=== PATIENT | female | born 1995 | race American Indian/Alaskan Native ===

== ENCOUNTER 2019-12-06 23:39 | Emergency (ER) | payer SELFPAY ==
[2019-12-06 23:52] VITALS: BP 129/83
[2019-12-07] MEDS ORDERED: IBUPROFEN 800 MG TAB ONE (00:38)
[2019-12-07] MEDS ORDERED: IBUPROFEN 800 MG TAB PO ONE (00:41)
--- NOTE | 2019-12-07 00:44 | XRay Report ---
CHEST 2 VIEWS INDICATION / CLINICAL INFORMATION: cough. COMPARISON: None available. FINDINGS: SUPPORT DEVICES: None. HEART / MEDIASTINUM: No significant abnormality. LUNGS / PLEURA: No significant pulmonary or pleural abnormality. No pneumothorax. ADDITIONAL FINDINGS: No significant additional findings. IMPRESSION: No significant abnormality Signer Name: Nathan Rodríguez MD FACR Signed: 12/07/2019 12:39 AM Workstation Name: [employer]
--- NOTE | 2019-12-07 01:15 | Emergency Department Report ---
ED General Adult HPI - General Chief complaint: Psych Stated complaint: FEVER/BREATHING PAIN Time Seen by Provider: 12/07/19 00:11 Source: patient Mode of arrival: Ambulatory Limitations: No Limitations - History of Present Illness Initial comments: Patient is a 24-year-old F Japanese female with past medical history of bipolar depression as well as and unknown mood disorder who is presenting with a cough. Patient called paramedics because he states he has been coughing for the last 10 years. Patient's psychotic diagnoses believes make it hard for her to give accurate timelines. Patient is 7 difficult time focusing and sometimes starts talking about things and noted 2017. Patient was asked prior to arrival if she was suicidal and she said yes. On further questioning she states that she has been suicidal in the past with cutting but she is not suicidal or homicidal at this time. Patient wants to come in because of the shortness of breath and cough. Again the patient states is been going on for 10 years however is unknown whether this is true. Severity scale (0 -10): 10 - Related Data Previous Rx's Medication Instructions Recorded Last Taken Type Albuterol INH(or & Nicu Only) 2 puff IH QID PRN #1 inhalation 12/07/19 Unknown Rx [ProAir HFA Inhaler] Benzonatate [Tessalon Perles] 100 mg PO Q8HR #10 capsule 12/07/19 Unknown Rx Fluticasone [Flonase] 1 spray NS QDAY #1 bottle 12/07/19 Unknown Rx predniSONE [Deltasone] 20 mg PO QDAY #5 tab 12/07/19 Unknown Rx Allergies Allergy/AdvReac Type Severity Reaction Status Date / Time No Known Allergies Allergy Unverified 12/06/19 23:57 ED Review of Systems ROS: Stated complaint: FEVER/BREATHING PAIN Other details as noted in HPI Comment: All other systems reviewed and negative ED Past Medical Hx - Past Medical History Previous Medical History?: Yes Hx Psychiatric Treatment: Yes (anxiety,) Additional medical history: hyperthyroid, ovarian cyst - Surgical History Past Surgical History?: No - Social History Smoking Status: Current Every Day Smoker Substance Use Type: Alcohol, Marijuana - Medications Home Medications: Home Medications Medication Instructions Recorded Confirmed Last Taken Type Albuterol INH(or & Nicu Only) 2 puff IH QID PRN #1 inhalation 12/07/19 Unknown Rx [ProAir HFA Inhaler] Benzonatate [Tessalon Perles] 100 mg PO Q8HR #10 capsule 12/07/19 Unknown Rx Fluticasone [Flonase] 1 spray NS QDAY #1 bottle 12/07/19 Unknown Rx predniSONE [Deltasone] 20 mg PO QDAY #5 tab 12/07/19 Unknown Rx ED Physical Exam - General Limitations: No Limitations General appearance: alert, in no apparent distress - Head Head exam: Present: atraumatic, normocephalic - Eye Eye exam: Present: normal appearance. Absent: PERRL, EOMI - ENT ENT exam: Present: normal orophraynx, mucous membranes moist - Neck Neck exam: Present: normal inspection - Respiratory Respiratory exam: Present: normal lung sounds bilaterally. Absent: respiratory distress, wheezes, rales, rhonchi (Patient has a bronchitic cough) - Cardiovascular Cardiovascular Exam: Present: regular rate, normal rhythm, normal heart sounds. Absent: systolic murmur, diastolic murmur, rubs, gallop - GI/Abdominal GI/Abdominal exam: Present: soft, normal bowel sounds. Absent: distended, tenderness, guarding, rebound - Extremities Exam Extremities exam: Present: normal inspection - Back Exam Back exam: Present: normal inspection - Neurological Exam Neurological exam: Present: alert, oriented X3 - Psychiatric Psychiatric exam: Present: normal affect, normal mood - Skin Skin exam: Present: warm, dry, intact, normal color. Absent: rash ED Course Vital Signs 12/06/19 12/07/19 23:49 00:45 Temperature 98.3 F Pulse Rate 115 H Respiratory 20 18 Rate Blood Pressure 129/83 O2 Sat by Pulse 99 Oximetry ED Medical Decision Making - Radiology Data Ordering Physician: JUANJOSE RIVERA MD Date of Service: 12/07/19 Procedure(s): XR chest routine 2V Accession Number(s): [id number] cc: JUANJOSE RIVERA MD Fluoro Time In Minutes: CHEST 2 VIEWS INDICATION / CLINICAL INFORMATION: cough. COMPARISON: None available. FINDINGS: SUPPORT DEVICES: None. HEART / MEDIASTINUM: No significant abnormality. LUNGS / PLEURA: No significant pulmonary or pleural abnormality. No pneumothorax. ADDITIONAL FINDINGS: No significant additional findings. IMPRESSION: No significant abnormality Signer Name: Nathan Rodríguez MD FACR Signed: 12/07/2019 12:39 AM Workstation Name: [email or web address] - Medical Decision Making Patient with a bronchitic cough but normal chest x-ray. Patient is a heavy smoker and likely has a smoker's bronchitis. Patient be discharged home. Given the recent outbreak of COVID 19 patient is to self isolate herself. Patient given medications for symptomatic relief. Patient stable for discharge. Patient was wearing a mask and I was wearing a mask the entire interaction. Close contact interaction was less than 10 minutes. Critical care attestation.: If time is entered above; I have spent that time in minutes in the direct care of this critically ill patient, excluding procedure time. ED Disposition Clinical Impression: Acute bronchitis Qualifiers: Bronchitis organism: unspecified organism Qualified Code(s): J20.9 - Acute bronchitis, unspecified Disposition: DC-01 TO HOME OR SELFCARE Is pt being admited?: No Does the pt Need Aspirin: No Condition: Stable Instructions: Acute Bronchitis (ED) Referrals: MARSHALL HENAO MD [Referring] - 3-5 Days Time of Disposition: 01:21
== END 2019-12-07 01:52 | disposition home or self-care (01) ==
LOC: ED 23:39
DX: J20.9 Acute bronchitis, unspecified (principal); R50.9 Fever, unspecified; E03.9 Hypothyroidism, unspecified; F41.9 Anxiety disorder, unspecified; F12.90 Cannabis use, unspecified, uncomplicated; F17.200 Nicotine dependence, unspecified, uncomplicated; Z79.899 Other long term (current) drug therapy; Z91.010 Allergy to peanuts; Z88.6 Allergy status to analgesic agent
CPT/HCPCS: 71046; 99283

== ENCOUNTER 2019-12-07 20:35 | Emergency (ER) | payer SELFPAY ==
--- NOTE | 2019-12-07 23:19 | Event Note ---
ED Screening Note Date of service: 12/07/19 Time: 23:14 ED Screening Note: 24 y/o female with vaginal pain intermittently times 3 year. Was seen here yesterday. History of bipolar. Patient has been eating and drinking. Has not taking any pain medication and is not on Psych meds. Patient is very aggressive talking loud. Walking well with out difficulties. This initial assessment/diagnostic orders/clinical plan/treatment(s) is/are subject to change based on patients health status, clinical progression and re- assessment by fellow clinical providers in the ED. Further treatment and workup at subsequent clinical providers discretion. Patient/guardian urged not to elope from the ED as their condition may be serious if not clinically assessed and managed. Initial orders include:
[2019-12-08] MEDS: LORazepam 1 MG TAB PO ONE ×2 (01:52→04:45)
[2019-12-08 01:57] LABS: Basophils % (Auto) 0.3 % (0.0-1.8); Eosinophils % (Auto) 0.1 % (0.0-4.3); Hematocrit 33.8 % (30.3-42.9); Hemoglobin 11.2 gm/dl (10.1-14.3); Lymphocytes # (Auto) 2.2 K/mm3 (1.2-5.4); Lymphocytes % (Auto) 15.7 % (13.4-35.0); Mean Corpuscular HGB Conc 33 % (30-34); Mean Corpuscular Volume 86 fl (79-97); Monocytes # (Auto) 0.8 K/mm3 (0.0-0.8); Monocytes % (Auto) 5.9 % (0.0-7.3); Platelet Count 348 K/mm3 (140-440); Red Blood Count 3.94 M/mm3 (3.65-5.03); Red Cell Distribution Width 15.6 % (13.2-15.2)
[2019-12-08 02:13] LABS: Alanine Aminotransferase 16 units/L (7-56); Albumin 3.9 g/dL (3.9-5); BUN/Creatinine Ratio 8; Blood Urea Nitrogen 5 mg/dL (7-17); Calcium 9.3 mg/dL (8.4-10.2); Hemolysis Index 8
[2019-12-08] MEDS ORDERED: traMADol 50 MG TAB PO ONE ×3 (02:23→20:56)
--- NOTE | 2019-12-08 02:31 | Emergency Department Report ---
<NINO CORREA - Last Filed: 12/11/19 11:36> ED Psych HPI - General Chief Complaint: Abdominal Pain Stated Complaint: LUMP RT BREAST/OVARIAN CYST/ ABD PAIN Time Seen by Provider: 12/07/19 23:05 - Related Data Previous Rx's Medication Instructions Recorded Last Taken Type Albuterol INH(or & Nicu Only) 2 puff IH QID PRN #1 inhalation 12/07/19 Unknown Rx [ProAir HFA Inhaler] Benzonatate [Tessalon Perles] 100 mg PO Q8HR #10 capsule 12/07/19 Unknown Rx Fluticasone [Flonase] 1 spray NS QDAY #1 bottle 12/07/19 Unknown Rx predniSONE [Deltasone] 20 mg PO QDAY #5 tab 12/07/19 Unknown Rx Divalproex [Earnestine Sharma] 500 mg PO BID #60 tablet 12/11/19 Unknown Rx OLANzapine [ZyPREXA] 5 mg PO BID #60 tablet 12/11/19 Unknown Rx Allergies Allergy/AdvReac Type Severity Reaction Status Date / Time acetaminophen Allergy Angioedema Verified 12/08/19 02:22 ibuprofen [From Motrin] Allergy Angioedema Verified 12/08/19 02:22 peanut Allergy Angioedema Verified 12/11/19 04:51 ED Past Medical Hx - Medications Home Medications: Home Medications Medication Instructions Recorded Confirmed Last Taken Type Albuterol INH(or & Nicu Only) 2 puff IH QID PRN #1 inhalation 12/07/19 12/08/19 Unknown Rx [ProAir HFA Inhaler] Benzonatate [Tessalon Perles] 100 mg PO Q8HR #10 capsule 12/07/19 12/08/19 Unknown Rx Fluticasone [Flonase] 1 spray NS QDAY #1 bottle 12/07/19 12/08/19 Unknown Rx predniSONE [Deltasone] 20 mg PO QDAY #5 tab 12/07/19 12/08/19 Unknown Rx Divalproex [Earnestine Sharma] 500 mg PO BID #60 tablet 12/11/19 Unknown Rx OLANzapine [ZyPREXA] 5 mg PO BID #60 tablet 12/11/19 Unknown Rx ED Medical Decision Making - Lab Data Result diagrams: 12/08/19 01:46 12/08/19 01:46 - Medical Decision Making Ms. Hayes is a 24 yo female with hx of bipolar disorder who presents with concerns of a right breast lump and ovarian cyst pain for 3 years. She has many concerns. She denies suicidal homicidal ideation. She denies hearing voices. She speaks of many subjects. She states that she has been on a 5150 in [place]. She has been admitted 4 times to psychiatric facilty. Security discovered a knife in her possession. She does not take psychiatric medications because she states these agents make her suicidal. I personally examined Ms. Hayes. Patient is calm and pleasant. Patient denied any suicidal or homicidal ideation. Patient has been evaluated by our psychiatric team and advised to discharge patient home and to follow-up as an outpatient. Patient is medically and psychiatrically stable for discharge. ED Disposition Clinical Impression: Acute psychosis, Pelvic pain Disposition: - TO HOME OR SELFCARE Is pt being admited?: No Condition: Stable Instructions: Abdominal Pain (ED) Prescriptions: Divalproex Dr [Depakote Dr] 500 mg PO BID #60 tablet OLANzapine [ZyPREXA] 5 mg PO BID #60 tablet Referrals: PRIMARY CARE, [Primary Care Provider] - 3-5 Days <PINO RIVERA - Last Filed: 12/13/19 11:34> ED Psych HPI - General Source: patient Mode of arrival: Ambulatory Limitations: Other - History of Present Illness Initial Comments: Ms. Hayes is a 24 yo female with hx of bipolar disorder who presents with concerns of a right breast lump and ovarian cyst pain for 3 years. She has many concerns. She denies suicidal homicidal ideation. She denies hearing voices. She speaks of many subjects. She states that she has been on a 5150 in [place]. She has been admitted 4 times to psychiatric facilty. Security discovered a knife in her possession. She does not take psychiatric medications because she states these agents make her suicidal. Complaint: other (Disorganized poor insight) -: unknown Associated Psychiatric Symptoms: racing thoughts Quality: constant Improves With: none Worsens With: none Context: not taking psychiatric, other (Recent move from [place]) Associated Symptoms: other (Right breast lump ovarian cyst) Treatments Prior to Arrival: none ED Review of Systems ROS: Stated complaint: LUMP RT BREAST/OVARIAN CYST/ ABD PAIN Other details as noted in HPI Comment: All other systems reviewed and negative Constitutional: denies: fever Respiratory: cough. denies: shortness of breath Genitourinary: other (Pelvic pain) ED Past Medical Hx - Past Medical History Previous Medical History?: Yes Hx Psychiatric Treatment: Yes (anxiety, Schizophrenia) Additional medical history: hyperthyroid, right ovarian cyst, right breast lump - Surgical History Past Surgical History?: No - Social History Smoking Status: Former Smoker Substance Use Type: None ED Physical Exam - General Limitations: No Limitations General appearance: alert, in no apparent distress - Head Head exam: Present: atraumatic, normocephalic - Eye Eye exam: Present: normal appearance - ENT ENT exam: Present: mucous membranes moist - Neck Neck exam: Present: normal inspection, full ROM - Respiratory Respiratory exam: Present: normal lung sounds bilaterally. Absent: respiratory distress, wheezes, rales, rhonchi - Cardiovascular Cardiovascular Exam: Present: regular rate, normal rhythm, normal heart sounds. Absent: systolic murmur, diastolic murmur, rubs, gallop - GI/Abdominal GI/Abdominal exam: Present: soft, normal bowel sounds. Absent: distended, tenderness, guarding, rebound - Extremities Exam Extremities exam: Present: normal inspection - Neurological Exam Neurological exam: Present: alert, oriented X3 - Psychiatric Psychiatric exam: Present: normal affect, agitated, other (Circular pressured speech poor insight disorganized thought pattern) - Skin Skin exam: Present: warm, dry, intact, normal color. Absent: rash ED Course Vital Signs 12/08/19 12/08/19 12/08/19 02:03 02:26 02:28 Temperature 98.2 F Pulse Rate 105 H Respiratory 18 18 20 Rate Blood Pressure 139/103 [Right] O2 Sat by Pulse 97 99 Oximetry 12/08/19 12/08/19 12/08/19 03:28 04:12 04:30 Temperature 98.2 F Pulse Rate 112 H 105 H Respiratory 18 18 Rate Blood Pressure 121/84 [Right] O2 Sat by Pulse 97 Oximetry 12/08/19 12/08/19 12/08/19 07:47 13:03 20:33 Temperature 97.6 F 98.9 F Pulse Rate 88 91 H Respiratory 18 18 18 Rate Blood Pressure 109/64 113/76 [Right] O2 Sat by Pulse 100 99 Oximetry 12/08/19 12/09/19 12/09/19 21:05 02:15 08:01 Temperature 98.4 F 98.9 F Pulse Rate 77 87 Respiratory 20 16 18 Rate Blood Pressure 100/71 136/95 [Right] O2 Sat by Pulse 100 99 Oximetry 12/09/19 12/09/19 12/09/19 13:31 20:00 20:06 Temperature 98.6 F 98.3 F Pulse Rate 73 74 Respiratory 18 16 16 Rate Blood Pressure 133/80 118/71 [Right] O2 Sat by Pulse 94 96 96 Oximetry 12/10/19 12/10/19 12/11/19 01:10 19:34 08:16 Temperature 98.3 F 98.7 F 98.8 F Pulse Rate 86 109 H 99 H Respiratory 18 16 18 Rate Blood Pressure 126/83 117/84 123/89 [Right] O2 Sat by Pulse 98 100 100 Oximetry ED Medical Decision Making - Lab Data Result diagrams: 12/08/19 01:46 12/08/19 01:46 - Medical Decision Making Ms. Hayes presents with multiple concerns including a right breast lump and ovarian cysts which have been present for 3 years. It appears that she is either experiencing acute darling or psychosis. She is agitated with disorganized thought patterns circular pressured speech. She had a weapon in her possession upon arrival. I have placed her on involuntary hold 1013 protocol for her safety and the safety of others. She is medically clear for psychiatric care. with elevated white count, will treat for possible pelvic infection such as PID, no evidence of other source of infection, at this time, pelvic exam has been deferred due to patient's current mental state Patient has been encouraged to obtain outpatient mammogram by primary care physician when she is stabilized from a psychiatric standpoint. Additionally she does not have fever or cough to indicate coronavirus COVID 19 infection I examined the right breast iof patient with her permission and female nurse it security administrator. I was unable to discover a lung mass. There is no abscess. Patient likely has cystic breasts. I recommended mammogram within the next 3 to 6 months. Also recommended monthly breast exams. Critical care attestation.: If time is entered above; I have spent that time in minutes in the direct care of this critically ill patient, excluding procedure time. ED Disposition Is pt being admited?: No Does the pt Need Aspirin: No
[2019-12-08] MEDS ORDERED: LIDOCAINE-MPF (1%) 10 MG/1 ML VIAL 5 ML INFILTRATI ONE (02:32)
[2019-12-08] MEDS: DOXYCYCLINE 100 MG TAB PO SCH ×3 (03:08→22:07)
[2019-12-08] MEDS ORDERED: LORazepam 1 MG TAB ONE (04:45)
[2019-12-08 05:32] LABS: Bacteria,Urine 1+ /HPF (Negative); Bilirubin,Urine NEG (Negative); Blood,Urine NEG (Negative); Color,Urine Yellow (Yellow); Mucus,Urine FEW /HPF; Protein,Urine <15 mg/dL mg/dL (Negative); Urobilinogen,Urine < 2.0 mg/dL (<2.0)
[2019-12-08 05:36] LABS: Amphetamine Screen,Urine PRESUMPTIVE NEGATIVE; Benzodiazepines Screen,Urine PRESUMPTIVE NEGATIVE; Cocaine Screen,Urine PRESUMPTIVE NEGATIVE; Methadone Screen,Urine PRESUMPTIVE NEGATIVE; Opiate Screen,Urine PRESUMPTIVE NEGATIVE
[2019-12-08 06:02] LABS: Cannabinoid Screen,Urine PRESUMPTIVE POSITIVE
[2019-12-09] MEDS: DOXYCYCLINE 100 MG TAB PO SCH ×2 (10:08→23:29)
--- NOTE | 2019-12-09 11:23 | Consultation ---
History of Present Illness - Reason for Consult Consult date: 12/09/19 Reason for consult: Psych eval - Chief Complaint Chief complaint: "I want emergency ultra sound for my ovarian cyst" - History of Present Psychiatric Illness Ms. Hayes is a 24 yo female with hx of bipolar disorder who presents with concerns of a right breast lump and ovarian cyst pain for 3 years. She is disorganized, talkative, disruptive and paranoid hence Psychiatry consult is requested to evaluate and recommend disposition. Patient seen by me. She is states that she presented to the ED because she wants an emergency ultra sound for ovarian cyst. Patient is irritable, loud, difficult to re-direct, talkative and difficult to interrupt. She endorses raising thoughts. She has flight of ideas and her thought process is tangential. She is paranoid and has been carrying a knife. She denies suicidal homicidal ideation. She denies hearing voices. She states that she has been on a 5150 in [place]. She has been admitted 4 times to psychiatric facilty. Security discovered a knife in her possession. PAST PSYCHIATRIC HISTORY: Diagnoses: Bipolar disorder Suicide attempts or Self-harm behavior: no Prior psychiatric hospitalizations: yes Substance Abuse history: THC Previous psychiatric medications tried: Unknown Outpatient treatment: No Family Psychiatric History None reported or documented SOCIAL HISTORY Marital Status: Single Living Arrangements: with ex-boyfriend's family Employment Status: unemployed Access to guns/weapons: Patient denies Education: Some college History of Abuse: Patient denies Legal History: Patient denies ROS: Constitutional: Negative for weight loss ENT: Negative for stridor Respiratory: Negative for cough or hemoptysis All other systems reviewed and are negative MENTAL STATUS General Appearance and Behavior: age appropriate, good eye contact, uncooperative with questioning Cooperation: uncooperative Psychomotor Behavior: Agitated Mood: OK Affect and affective range: Elated Thought Process: Tangential, flight of ideas Thought Content: Paranoid Speech: Loud, speeded Intellectual Functioning Average Suicidal Ideation: Denies SI Homicidal Ideation: Denies HI Impulse Control: impaired Insight and Judgment: impaired insight and judgment Memory: Normal Attention: Normal Orientation: alert and oriented Assessment and Plan - Psychiatric problem (1) Bipolar disorder, current episode manic severe with psychotic features Current Visit: Yes Status: Acute RECOMMENDATIONS MEDICATIONS: Will start Olanzapine and Depakote Risks, benefits and alternatives of medications discussed with the patient, questions answered and consent obtained from patient. 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 Please contact with any questions and/or concerns. Medications and Allergies Allergies Allergy/AdvReac Type Severity Reaction Status Date / Time acetaminophen Allergy Angioedema Verified 12/08/19 02:22 ibuprofen [From Motrin] Allergy Angioedema Verified 12/08/19 02:22 Home Medications Medication Instructions Recorded Confirmed Last Taken Type Albuterol INH(or & Nicu Only) 2 puff IH QID PRN #1 inhalation 12/07/19 12/08/19 Unknown Rx [ProAir HFA Inhaler] Benzonatate [Tessalon Perles] 100 mg PO Q8HR #10 capsule 12/07/19 12/08/19 Unknown Rx Fluticasone [Flonase] 1 spray NS QDAY #1 bottle 12/07/19 12/08/19 Unknown Rx predniSONE [Deltasone] 20 mg PO QDAY #5 tab 12/07/19 12/08/19 Unknown Rx Active Meds: Active Medications Doxycycline Hyclate (Vibramycin) 100 mg PO BID RENUKA Stop: 12/22/19 02:33 Last Admin: 12/09/19 10:08 Dose: 100 mg Documented by: Mental Status Exam - Vital signs Last Vital Signs Temp 98.9 F 12/09/19 08:01 Pulse 87 12/09/19 08:01 Resp 18 12/09/19 08:01 BP 136/95 12/09/19 08:01 Pulse Ox 99 12/09/19 08:01 Results Result Diagrams: 12/08/19 01:46 12/08/19 01:46 All other labs normal. Assessment and Plan - Psychiatric problem (1) Bipolar disorder, current episode manic severe with psychotic features Current Visit: Yes Status: Acute
[2019-12-09] MEDS ORDERED: ZIPRASIDONE MESYLATE 20 MG VIAL IM PRN (18:47)
[2019-12-09] MEDS ORDERED: DIVALPROEX DR 250 MG TAB PO SCH (22:00)
[2019-12-10] MEDS: DIVALPROEX DR 500 MG TAB PO SCH ×3 (00:47→22:48)
[2019-12-10] MEDS: DOXYCYCLINE 100 MG TAB PO SCH ×2 (11:00→22:47)
--- NOTE | 2019-12-10 11:46 | Progress Note ---
Subjective - Reason for Consult Consult date: 12/10/19 Reason for consult: Psych follow up - Chief Complaint Chief complaint: No new complaints. SUBJECTIVE Patient continues to be paranoid, disorganized, loud and irritable but she accepts medications and denies side effect. She denies SI/HI ROS: Constitutional: Negative for weight loss ENT: Negative for stridor Respiratory: Negative for cough or hemoptysis All other systems reviewed and are negative MENTAL STATUS General Appearance and Behavior: age appropriate, good eye contact, uncooperative with questioning Cooperation: uncooperative Psychomotor Behavior: Agitated Mood: OK Affect and affective range: Elated Thought Process: Tangential, flight of ideas Thought Content: Paranoid Speech: Loud, speeded Intellectual Functioning Average Suicidal Ideation: Denies SI Homicidal Ideation: Denies HI Impulse Control: impaired Insight and Judgment: impaired insight and judgment Memory: Normal Attention: Normal Orientation: alert and oriented Assessment and Plan - Psychiatric problem (1) Bipolar disorder, current episode manic severe with psychotic features Current Visit: Yes Status: Acute RECOMMENDATIONS MEDICATIONS: Will continue Olanzapine and Depakote Risks, benefits and alternatives of medications discussed with the patient, questions answered and consent obtained from patient. 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 Please contact with any questions and/or concerns." Mental Status Exam - Vital signs Last Vital Signs Temp 98.3 F 12/10/19 01:10 Pulse 86 12/10/19 01:10 Resp 18 12/10/19 01:10 BP 126/83 12/10/19 01:10 Pulse Ox 98 12/10/19 01:10 Assessment and Plan - Patient Problems (1) Bipolar disorder, current episode manic severe with psychotic features Current Visit: Yes Status: Acute
[2019-12-10] MEDS ORDERED: traMADol 50 MG TAB ONE (13:43)
[2019-12-10] MEDS ORDERED: traMADol 50 MG TAB PO ONE (13:52)
[2019-12-11 08:18] VITALS: BP 123/89
--- NOTE | 2019-12-11 09:52 | Progress Note ---
Subjective - Reason for Consult Consult date: 12/11/19 Reason for consult: Psych follow up - Chief Complaint Chief complaint: No new complaints. SUBJECTIVE Patient continues is calm and pleasant this morning. She reports good and stable mood. She denies SI/HI/AVH/Paranoia. She is compliant with her medications and denies side effect. She feels safe and ready for discharge ROS: Constitutional: Negative for weight loss ENT: Negative for stridor Respiratory: Negative for cough or hemoptysis All other systems reviewed and are negative MENTAL STATUS General Appearance and Behavior: age appropriate, good eye contact, cooperative with questioning and polite Cooperation: cooperative Psychomotor Behavior: normal Mood: OK Affect and affective range: normal Thought Process: Linear and goal directed Thought Content: WNL Speech: normal Intellectual Functioning Average Suicidal Ideation: Denies SI Homicidal Ideation: Denies HI Impulse Control: Normal Insight and Judgment: Good Memory: Normal Attention: Normal Orientation: alert and oriented Assessment and Plan - Psychiatric problem (1) Bipolar disorder, current episode manic severe with psychotic features Current Visit: Yes Status: Acute RECOMMENDATIONS MEDICATIONS: Will discharge home on continue Olanzapine and Depakote Risks, benefits and alternatives of medications discussed with the patient, questions answered and consent obtained from patient. 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 Please contact with any questions and/or concerns." Mental Status Exam - Vital signs Last Vital Signs Temp 98.8 F 12/11/19 08:16 Pulse 99 H 12/11/19 08:16 Resp 18 12/11/19 08:16 BP 123/89 12/11/19 08:16 Pulse Ox 100 12/11/19 08:16 Assessment and Plan - Patient Problems (1) Bipolar disorder, current episode manic severe with psychotic features Status: Acute
[2019-12-11] MEDS: DOXYCYCLINE 100 MG TAB PO SCH (10:47)
[2019-12-11] MEDS: DIVALPROEX DR 500 MG TAB PO SCH (10:47)
== END 2019-12-11 12:27 | disposition home or self-care (01) ==
LOC: EEVIPCON 20:35 → ED 20:35
DX: F23 Brief psychotic disorder (principal); R10.2 Pelvic and perineal pain; F31.9 Bipolar disorder, unspecified; F41.9 Anxiety disorder, unspecified; Z79.899 Other long term (current) drug therapy; Z88.6 Allergy status to analgesic agent; Z91.010 Allergy to peanuts
CPT/HCPCS: 36415; 80053; 80307; 81001; 81025; 84703; 85025; 96372; 99284; J0696; 80320; G0480

== ENCOUNTER 2020-10-27 23:59 | Emergency (ER) | payer BC ==
[2020-10-28] MEDS ORDERED: methylPREDNISolone Sod Succinate 40 MG/1 ML INJ IM ONE (00:11)
[2020-10-28] MEDS ORDERED: IPRATROPIUM/ALBUTEROL SULFATE 3 ML AMPUL.NEB IH ONE (00:11)
--- NOTE | 2020-10-28 00:16 | Event Note ---
ED Screening Note Date of service: 10/28/20 Time: 00:13 ED Screening Note: Patient is a 25-year-old -[place] female with a history of schizophrenia, hypothyroidism, hayfever, anxiety and depression, left ear deafness, chronic bronchitis and who smokes and vapes nicotine presents to the ED with complaint of acute onset persistent right-sided pleuritic chest pain, shortness of breath and persistent dry cough for the last 1 week, worse in the last 2 days. Patient states that she suspected that her symptoms may have been due to acute exacerbation of her seasonal allergies but got worse in the last 2 days. Patient states that she has been unable to sleep because of persistent chest pain or shortness of breath. Patient denies nausea, vomiting, fever, chills, sore throat, dizziness, syncope, palpitations, seizures, change in vision, abdominal pain, dysuria or urinary frequency and urgency and neck pain. This initial assessment/diagnostic orders/clinical plan/treatment(s) is/are subject to change based on patients health status, clinical progression and re- assessment by fellow clinical providers in the ED. Further treatment and workup at subsequent clinical providers discretion. Patient/guardian urged not to elope from the ED as their condition may be serious if not clinically assessed and managed. Initial orders include: CBC, CMP, troponin, EKG, chest x-ray, Solu-Medrol, DuoNeb
[2020-10-28 00:29] VITALS: BP 121/81
[2020-10-28 00:40] LABS: Basophils % (Auto) 0.6 % (0.0-1.8); Eosinophils # (Auto) 0.1 K/mm3 (0.0-0.4); Eosinophils % (Auto) 1.6 % (0.0-4.3); Hematocrit 30.5 % (30.3-42.9); Hemoglobin 10.1 gm/dl (10.1-14.3); Lymphocytes # (Auto) 2.1 K/mm3 (1.2-5.4); Lymphocytes % (Auto) 31.5 % (13.4-35.0); Mean Corpuscular HGB Conc 33 % (30-34); Mean Corpuscular Volume 85 fl (79-97); Monocytes # (Auto) 0.5 K/mm3 (0.0-0.8); Platelet Count 323 K/mm3 (140-440); Red Blood Count 3.59 M/mm3 (3.65-5.03); Red Cell Distribution Width 16.8 % (13.2-15.2)
--- NOTE | 2020-10-28 00:51 | XRay Report ---
CHEST 1 VIEW 10/28/2020 12:41 AM INDICATION / CLINICAL INFORMATION: chest pain, dyspnea. COMPARISON: 12/07/19 FINDINGS: SUPPORT DEVICES: None. HEART / MEDIASTINUM: No significant abnormality. LUNGS / PLEURA: No significant pulmonary or pleural abnormality. No pneumothorax. ADDITIONAL FINDINGS: No significant additional findings. IMPRESSION: 1. No acute findings. No change. Signer Name: Jose Raul Galan MD Signed: 10/28/2020 12:47 AM Workstation Name: [id number]
[2020-10-28 01:03] LABS: Alanine Aminotransferase 18 units/L (7-56); Albumin 4.1 g/dL (3.9-5); BUN/Creatinine Ratio 9; Blood Urea Nitrogen 7 mg/dL (7-17); Calcium 8.8 mg/dL (8.4-10.2); Hemolysis Index 0
--- NOTE | 2020-10-28 01:42 | Emergency Department Report ---
ED General Adult HPI - General Chief complaint: Dyspnea/Respdistress Stated complaint: GIGI Time Seen by Provider: 10/28/20 01:31 Source: patient Mode of arrival: Ambulatory Limitations: No Limitations - History of Present Illness Initial comments: Patient is a 25-year-old -[place] Islander female with a history of schizophrenia, hypothyroidism, hayfever, anxiety and depression, left ear deafness, chronic bronchitis and who smokes and vapes nicotine presents to the ED with complaint of acute onset persistent right-sided pleuritic chest pain, shortness of breath and persistent dry cough for the last 1 week, worse in the last 2 days. Patient states that she suspected that her symptoms may have been due to acute exacerbation of her seasonal allergies but got worse in the last 2 days. Patient states that she has been unable to sleep because of persistent chest pain or shortness of breath. Patient denies nausea, vomiting, fever, chills, sore throat, dizziness, syncope, palpitations, seizures, change in vision, abdominal pain, dysuria or urinary frequency and urgency and neck pain. - Related Data Previous Rx's Medication Instructions Recorded Last Taken Type Albuterol Mdi (or & Nicu Only) 2 puff IH QID PRN #1 inhalation 12/07/19 Unknown Rx [ProAir HFA Inhaler] Benzonatate [Tessalon Perles] 100 mg PO Q8HR #10 capsule 12/07/19 Unknown Rx Fluticasone [Flonase] 1 spray NS QDAY #1 bottle 12/07/19 Unknown Rx predniSONE [Deltasone] 20 mg PO QDAY #5 tab 12/07/19 Unknown Rx Divalproex [Earnestine Sharma] 500 mg PO BID #60 tablet 12/11/19 Unknown Rx OLANzapine [ZyPREXA] 5 mg PO BID #60 tablet 12/11/19 Unknown Rx Albuterol Mdi (or & Nicu Only) 2 puff IH QID PRN #8.5 gram 10/28/20 Unknown Rx [ProAir HFA Inhaler] Naproxen [EC-Naprosyn] 500 mg PO BID PRN #30 tablet. 10/28/20 Unknown Rx predniSONE [Deltasone] 40 mg PO QDAY 5 Days #10 tab 10/28/20 Unknown Rx Allergies Allergy/AdvReac Type Severity Reaction Status Date / Time acetaminophen Allergy Angioedema Verified 12/08/19 02:22 ibuprofen [From Motrin] Allergy Angioedema Verified 12/08/19 02:22 peanut Allergy Angioedema Verified 12/11/19 04:51 ED Review of Systems ROS: Stated complaint: GIGI Other details as noted in HPI Constitutional: denies: chills, fever Eyes: denies: eye pain, eye discharge, vision change ENT: denies: ear pain, throat pain Respiratory: cough, SOB at rest. denies: shortness of breath, wheezing Cardiovascular: chest pain (right lateral chest wall pain). denies: palpitations Endocrine: no symptoms reported Gastrointestinal: denies: abdominal pain, nausea, diarrhea Genitourinary: denies: urgency, dysuria, discharge Musculoskeletal: denies: back pain, joint swelling, arthralgia Skin: denies: rash, lesions Neurological: denies: headache, weakness, paresthesias Psychiatric: denies: anxiety, depression Hematological/Lymphatic: denies: easy bleeding, easy bruising ED Past Medical Hx - Past Medical History Previous Medical History?: Yes Hx Psychiatric Treatment: Yes (anxiety, Schizophrenia) Additional medical history: hyperthyroid, right ovarian cyst, right breast lump. smoker's bronchitis. irreg heartbeat - Surgical History Past Surgical History?: No - Social History Smoking Status: Current Every Day Smoker Substance Use Type: Alcohol - Medications Home Medications: Home Medications Medication Instructions Recorded Confirmed Last Taken Type Albuterol Mdi (or & Nicu Only) 2 puff IH QID PRN #1 inhalation 12/07/19 12/26/19 Unknown Rx [ProAir HFA Inhaler] Benzonatate [Tessalon Perles] 100 mg PO Q8HR #10 capsule 12/07/19 12/26/19 Unknown Rx Fluticasone [Flonase] 1 spray NS QDAY #1 bottle 12/07/19 12/26/19 Unknown Rx predniSONE [Deltasone] 20 mg PO QDAY #5 tab 12/07/19 12/26/[address] [Depakote Dr] 500 mg PO BID #60 tablet 12/11/19 12/26/19 Unknown Rx OLANzapine [ZyPREXA] 5 mg PO BID #60 tablet 12/11/19 12/26/19 Unknown Rx Albuterol Mdi (or & Nicu Only) 2 puff IH QID PRN #8.5 gram 10/28/20 Unknown Rx [ProAir HFA Inhaler] Naproxen [EC-Naprosyn] 500 mg PO BID PRN #30 tablet. 10/28/20 Unknown Rx predniSONE [Deltasone] 40 mg PO QDAY 5 Days #10 tab 10/28/20 Unknown Rx ED Physical Exam - General Limitations: No Limitations (a) General appearance: alert, in no apparent distress - Head Head exam: Present: atraumatic, normocephalic - Eye Eye exam: Present: normal appearance, EOMI Pupils: Present: normal accommodation - ENT ENT exam: Present: mucous membranes moist - Neck Neck exam: Present: normal inspection, full ROM. Absent: tenderness, lymphadenopathy - Respiratory Respiratory exam: Present: normal lung sounds bilaterally, chest wall tenderness (right lateral chest wall pain to deep palpation , reproducible ). Absent: respiratory distress, wheezes, rales, rhonchi, stridor, decreased breath sounds, prolonged expiratory - Cardiovascular Cardiovascular Exam: Present: regular rate, normal rhythm, normal heart sounds. Absent: systolic murmur, diastolic murmur, rubs, gallop - GI/Abdominal GI/Abdominal exam: Present: soft, normal bowel sounds. Absent: distended, tenderness - Rectal Rectal exam: Present: deferred - Extremities Exam Extremities exam: Present: normal inspection, full ROM. Absent: tenderness - Back Exam Back exam: Present: normal inspection, full ROM. Absent: tenderness, CVA tenderness (R), CVA tenderness (L) - Neurological Exam Neurological exam: Present: alert, oriented X3, CN II-XII intact, normal gait - Psychiatric Psychiatric exam: Present: normal affect - Skin Skin exam: Present: warm, dry, intact, normal color. Absent: rash ED Course Vital Signs 10/28/20 00:10 Temperature 98.4 F Pulse Rate 109 H Respiratory 18 Rate Blood Pressure 121/81 O2 Sat by Pulse 100 Oximetry ED Medical Decision Making - Lab Data Result diagrams: 10/28/20 00:16 10/28/20 00:16 Labs 10/28/20 10/28/20 00:16 00:16 WBC 6.7 RBC 3.59 L Hgb 10.1 Hct 30.5 MCV 85 MCH 28 MCHC 33 RDW 16.8 H Plt Count 323 Lymph % (Auto) 31.5 [place] % (Auto) 7.0 Eos % (Auto) 1.6 Baso % (Auto) 0.6 Lymph # (Auto) 2.1 [place] # (Auto) 0.5 Eos # (Auto) 0.1 Baso # (Auto) 0.0 Seg Neutrophils % 59.3 Seg Neutrophils # 4.0 Sodium 138 Potassium 3.8 Chloride 103.7 Carbon Dioxide 21 L Anion Gap 17 BUN 7 Creatinine 0.8 Estimated GFR > 60 BUN/Creatinine Ratio 9 Glucose 122 H Calcium 8.8 Total Bilirubin < 0.20 AST 26 ALT 18 Alkaline Phosphatase 53 Troponin T < 0.010 Total Protein 6.8 Albumin 4.1 Albumin/Globulin Ratio 1.5 - Radiology Data Radiology results: report reviewed, image reviewed FINDINGS: SUPPORT DEVICES: None. HEART / MEDIASTINUM: No significant abnormality. LUNGS / PLEURA: No significant pulmonary or pleural abnormality. No pneumothorax. ADDITIONAL FINDINGS: No significant additional findings. IMPRESSION: 1. No acute findings. No change. Signer Name: Jose Raul Galan MD Signed: 10/28/2020 12:47 AM Workstation Name: [id number] Transcribed By: DT Dictated By: Edmond Galan MD Electronically Authenticated By: Edmond Galan MD Signed Date/Time: 10/28/2046 DD/ TD/TT: - Medical Decision Making xray normal: no infiltrates no opacities, labs normal This is likely smoker cough versus bronchitis plan: refill albuterol , prednisone, nsaids prn chest wall pain. pt will follow up with pcp in 2-3 days , vitals: hr: 74, bp: 118/69, O2 sat: 99% room air. Critical care attestation.: If time is entered above; I have spent that time in minutes in the direct care of this critically ill patient, excluding procedure time. ED Disposition Clinical Impression: Bronchitis Disposition: DC-01 TO HOME OR SELFCARE Is pt being admited?: No Does the pt Need Aspirin: No Condition: Stable Instructions: Acute Bronchitis, Adult, Chronic Bronchitis (ED) Prescriptions: predniSONE [Deltasone] 40 mg PO QDAY 5 Days #10 tab Naproxen [EC-Naprosyn] 500 mg PO BID PRN #30 tablet.dr CARLSON Reason: Pain , Severe (7-10) Albuterol Mdi (or & Nicu Only) [ProAir HFA Inhaler] 2 puff IH QID PRN #8.5 gram PRN Reason: Shortness Of Breath Referrals: AVILA OREILLY MD [Staff Physician] - 3-5 Days NIEVES BALBUENA MD [Staff Physician] - 3-5 Days AUDRA AGUILAR MD [Staff Physician] - 3-5 Days Forms: Work/School Release Form(ED) Time of Disposition: 01:43
== END 2020-10-28 02:03 | disposition home or self-care (01) ==
LOC: ED 23:59
DX: J40 Bronchitis, not specified as acute or chronic (principal); F41.9 Anxiety disorder, unspecified; F20.9 Schizophrenia, unspecified; F17.200 Nicotine dependence, unspecified, uncomplicated; Z88.8 Allergy status to other drugs, medicaments and biological substances; Z91.010 Allergy to peanuts
CPT/HCPCS: 36415; 71045; 80053; 84484; 85025

== ENCOUNTER 2021-04-08 23:58 | Emergency (ER) | payer SELFPAY ==
--- NOTE | 2021-04-09 00:44 | Emergency Department Report ---
HPI - General Time Seen by Provider: 04/09/21 00:30 - HPI HPI: 25-year-old female with history of asthma, hypothyroidism, and schizophrenia brought in 1013 by police due to suicidal ideation, aggressive behavior and psychosis. According to the police report, the patient's boyfriend reported that some hours ago she began to get extremely agitated and started punching him. She apparently took one of her anxiety medications, which is hydroxyzine 50 mg and took diphenhydramine 25 mg. She however texted her boyfriend that she was going to try to kill herself. Police were called and the patient was 1013. The patient tells me that she tried to kill her self by strangling herself. She has very pressured and tangential speech. She is unable to explain why she wants to end her life. She denies taking or ingesting anything other than the pills mentioned. She denies auditory/visual hallucinations although she states that the only hallucinations she has are in her head. She claims that her only complaint is thirstiness and denies any other physical symptoms or complaints. ED Past Medical Hx - Past Medical History Previous Medical History?: Yes Hx Psychiatric Treatment: Yes (anxiety, Schizophrenia) Additional medical history: hyperthyroid, right ovarian cyst, right breast lump, hernia. smoker's bronchitis. irreg heartbeat - Surgical History Past Surgical History?: No - Social History Smoking Status: Current Every Day Smoker Substance Use Type: Alcohol - Medications Home Medications: Home Medications Medication Instructions Recorded Confirmed Last Taken Type Albuterol Mdi (or & Nicu Only) 2 puff IH QID PRN #1 inhalation 12/07/19 12/26/19 Unknown Rx [ProAir HFA Inhaler] Benzonatate [Tessalon Perles] 100 mg PO Q8HR #10 capsule 12/07/19 12/26/19 Unknown Rx Fluticasone [Flonase] 1 spray NS QDAY #1 bottle 12/07/19 12/26/19 Unknown Rx predniSONE [Deltasone] 20 mg PO QDAY #5 tab 12/07/19 12/26/[address] [Depakote Dr] 500 mg PO BID #60 tablet 12/11/19 12/26/19 Unknown Rx OLANzapine [ZyPREXA] 5 mg PO BID #60 tablet 12/11/19 12/26/19 Unknown Rx Albuterol Mdi (or & Nicu Only) 2 puff IH QID PRN #8.5 gram 10/28/20 Unknown Rx [ProAir HFA Inhaler] Naproxen [EC-Naprosyn] 500 mg PO BID PRN #30 tablet. 10/28/20 Unknown Rx predniSONE [Deltasone] 40 mg PO QDAY 5 Days #10 tab 10/28/[address] [DepaKOTE DR] 250 mg PO TID 30 Days #90 tablet 04/09/21 Unknown Rx traZODone [Desyrel] 50 mg PO QHS 30 Days #30 tab 04/09/21 Unknown Rx ED Review of Systems ROS: Stated complaint: 1013/MH Other details as noted in HPI Constitutional: denies: chills, fever Eyes: denies: eye pain, vision change ENT: denies: throat pain, congestion Respiratory: denies: cough, shortness of breath Cardiovascular: denies: chest pain, palpitations Gastrointestinal: denies: abdominal pain, nausea, vomiting Genitourinary: denies: dysuria, frequency Musculoskeletal: denies: back pain, joint swelling Skin: denies: rash Neurological: denies: headache, weakness, numbness Psychiatric: depression, homicidal thoughts, suicidal thoughts. denies: auditory hallucinations, visual hallucinations Physical Exam - Physical Exam Vital Signs: Vital Signs 04/09/21 00:35 Temperature 98.8 F Pulse Rate 89 Respiratory 16 Rate Blood Pressure 122/86 [Left] O2 Sat by Pulse 100 Oximetry Physical Exam: GENERAL: Well developed and well nourished. No acute distress HEAD: Normocephalic. No obvious signs of trauma. ENT: Moist mucous membranes. EYES: Extraocular movements are intact. Pupils are equal round and reactive to light bilaterally NECK: Supple. Full ROM is intact. Trachea is midline. LUNGS: Nonlabored breathing. Equal chest rise bilaterally. Clear to auscultation bilaterally. CARDIOVASCULAR: Regular rate and rhythm. No murmurs or rubs. VASCULAR: Cap refill < 2 seconds ABDOMEN: Abdomen is soft and nondistended. There is no significant tenderness, guarding or rebound. SKIN: Skin is warm and dry NEURO: Patient is awake, alert, and oriented. hockey scout II-XII grossly intact. No focal deficits. Normal motor and sensory exam throughout. Normal speech. MUSCULOSKELETAL: No obvious deformities. No significant tenderness. Normal ROM throughout. PSYCH: Flat affect. Pressured speech which is tangential and circumferential ED Course Vital Signs 04/09/21 00:35 Temperature 98.8 F Pulse Rate 89 Respiratory 16 Rate Blood Pressure 122/86 [Left] O2 Sat by Pulse 100 Oximetry ED Medical Decision Making - Lab Data Result diagrams: 04/09/21 00:52 04/09/21 00:52 Lab Results 04/09/21 04/09/21 04/09/21 Range/Units 00:36 00:36 00:52 WBC 7.2 (4.5-11.0) K/mm3 RBC 4.13 (3.65-5.03) M/mm3 Hgb 9.9 L (10.1-14.3) gm/dl Hct 30.9 (30.3-42.9) % MCV 75 L (79-97) fl MCH 24 L (28-32) pg MCHC 32 (30-34) % RDW 21.8 H (13.2-15.2) % Plt Count 378 (140-440) K/mm3 Add Manual Diff Complete Total Counted 100 Seg Neuts % (Manual) 63.0 (40.0-70.0) % Lymphocytes % (Manual) 31.0 (13.4-35.0) % Monocytes % (Manual) 4.0 (0.0-7.3) % Eosinophils % (Manual) 2.0 (0.0-4.3) % Nucleated RBC % Not Reportable Seg Neutrophils # Man 4.5 (1.8-7.7) K/mm3 Band Neutrophils # 0.0 K/mm3 Lymphocytes # (Manual) 2.2 (1.2-5.4) K/mm3 Abs React Lymphs (Man) 0.0 K/mm3 Monocytes # (Manual) 0.3 (0.0-0.8) K/mm3 Eosinophils # (Manual) 0.1 (0.0-0.4) K/mm3 Basophils # (Manual) 0.0 (0.0-0.1) K/mm3 Metamyelocytes # 0.0 K/mm3 Myelocytes # 0.0 K/mm3 Promyelocytes # 0.0 K/mm3 Blast Cells # 0.0 K/mm3 WBC Morphology Not Reportable Hypersegmented Neuts Not Reportable Hyposegmented Neuts Not Reportable Hypogranular Neuts Not Reportable Smudge Cells Not Reportable Toxic Granulation Not Reportable Toxic Vacuolation Not Reportable Dohle Bodies Not Reportable Pelger-Huet Anomaly Not Reportable Theresa Rods Not Reportable Platelet Estimate Consistent w auto Clumped Platelets Not Reportable Plt Clumps, EDTA Not Reportable Large Platelets Not Reportable Giant Platelets Not Reportable Platelet Satelliting Not Reportable Plt Morphology Comment Not Reportable RBC Morphology Not Reportable Dimorphic RBCs Not Reportable Polychromasia Not Reportable Hypochromasia 1+ Poikilocytosis Not Reportable Anisocytosis 1+ Microcytosis Not Reportable Macrocytosis Not Reportable Spherocytes Not Reportable Pappenheimer Bodies Not Reportable Sickle Cells Not Reportable Target Cells Not Reportable Tear Drop Cells Not Reportable Ovalocytes Not Reportable Helmet Cells Not Reportable Ricks-Savoy Bodies Not Reportable Wesley Rings Not Reportable Betsy Cells Not Reportable Bite Cells Not Reportable Crenated Cell Not Reportable Elliptocytes Not Reportable Acanthocytes (Spur) Not Reportable Rouleaux Not Reportable Hemoglobin C Crystals Not Reportable Schistocytes Not Reportable Malaria parasites Not Reportable Lencho Bodies Not Reportable Hem Pathologist Commnt No Sodium (137-145) mmol/L Potassium (3.6-5.0) mmol/L Chloride (98-107) mmol/L Carbon Dioxide (22-30) mmol/L Anion Gap mmol/L BUN (7-17) mg/dL Creatinine (0.6-1.2) mg/dL Estimated GFR ml/min BUN/Creatinine Ratio % Glucose (65-100) mg/dL Calcium (8.4-10.2) mg/dL TSH (0.270-4.200) mlU/mL HCG, Qual (Negative) Urine Color Yellow (Yellow) Urine Turbidity Clear (Clear) Urine pH 7.0 (5.0-7.0) Ur Specific [place] 1.005 (1.003-1.030) Urine Protein <15 mg/dl (Negative) mg/dL Urine Glucose (UA) Neg (Negative) mg/dL Urine Ketones Neg (Negative) mg/dL Urine Blood Neg (Negative) Urine Nitrite Neg (Negative) Urine Bilirubin Neg (Negative) Urine Urobilinogen 2.0 (<2.0) mg/dL Ur Leukocyte Esterase Neg (Negative) Urine WBC (Auto) 2.0 (0.0-6.0) /HPF Urine RBC (Auto) < 1.0 (0.0-6.0) /HPF U Epithel Cells (Auto) 5.0 (0-13.0) /HPF Hyaline Casts 1 /LPF Salicylates (2.8-20.0) mg/dL Urine Opiates Screen Presumptive negative Urine Methadone Screen Presumptive negative Acetaminophen (10.0-30.0) ug/mL Ur Barbiturates Screen Presumptive negative Valproic Acid (50-100) ug/mL Ur Phencyclidine Scrn Presumptive negative Ur Amphetamines Screen Presumptive negative U Benzodiazepines Scrn Presumptive negative Urine Cocaine Screen Presumptive negative U Marijuana (THC) Screen Presumptive positive Drugs of Abuse Note Disclamer Plasma/Serum Alcohol (0-0.07) % 04/09/21 04/09/21 04/09/21 Range/Units 00:52 00:52 00:52 WBC (4.5-11.0) K/mm3 RBC (3.65-5.03) M/mm3 Hgb (10.1-14.3) gm/dl Hct (30.3-42.9) % MCV (79-97) fl MCH (28-32) pg MCHC (30-34) % RDW (13.2-15.2) % Plt Count (140-440) K/mm3 Add Manual Diff Total Counted Seg Neuts % (Manual) (40.0-70.0) % Lymphocytes % (Manual) (13.4-35.0) % Monocytes % (Manual) (0.0-7.3) % Eosinophils % (Manual) (0.0-4.3) % Nucleated RBC % Seg Neutrophils # Man (1.8-7.7) K/mm3 Band Neutrophils # K/mm3 Lymphocytes # (Manual) (1.2-5.4) K/mm3 Abs React Lymphs (Man) K/mm3 Monocytes # (Manual) (0.0-0.8) K/mm3 Eosinophils # (Manual) (0.0-0.4) K/mm3 Basophils # (Manual) (0.0-0.1) K/mm3 Metamyelocytes # K/mm3 Myelocytes # K/mm3 Promyelocytes # K/mm3 Blast Cells # K/mm3 WBC Morphology Hypersegmented Neuts Hyposegmented Neuts Hypogranular Neuts Smudge Cells Toxic Granulation Toxic Vacuolation Dohle Bodies Pelger-Huet Anomaly Theresa Rods Platelet Estimate Clumped Platelets Plt Clumps, EDTA Large Platelets Giant Platelets Platelet Satelliting Plt Morphology Comment RBC Morphology Dimorphic RBCs Polychromasia Hypochromasia Poikilocytosis Anisocytosis Microcytosis Macrocytosis Spherocytes Pappenheimer Bodies Sickle Cells Target Cells Tear Drop Cells Ovalocytes Helmet Cells Ricks-Savoy Bodies Wesley Rings Betsy Cells Bite Cells Crenated Cell Elliptocytes Acanthocytes (Spur) Rouleaux Hemoglobin C Crystals Schistocytes Malaria parasites Lencho Bodies Hem Pathologist Commnt Sodium 138 (137-145) mmol/L Potassium 3.6 (3.6-5.0) mmol/L Chloride 100.5 (98-107) mmol/L Carbon Dioxide 24 (22-30) mmol/L Anion Gap 17 mmol/L BUN 4 L (7-17) mg/dL Creatinine 0.8 (0.6-1.2) mg/dL Estimated GFR > 60 ml/min BUN/Creatinine Ratio 5 % Glucose 83 (65-100) mg/dL Calcium 9.2 (8.4-10.2) mg/dL TSH 0.467 (0.270-4.200) mlU/mL HCG, Qual (Negative) Urine Color (Yellow) Urine Turbidity (Clear) Urine pH (5.0-7.0) Ur Specific [place] (1.003-1.030) Urine Protein (Negative) mg/dL Urine Glucose (UA) (Negative) mg/dL Urine Ketones (Negative) mg/dL Urine Blood (Negative) Urine Nitrite (Negative) Urine Bilirubin (Negative) Urine Urobilinogen (<2.0) mg/dL Ur Leukocyte Esterase (Negative) Urine WBC (Auto) (0.0-6.0) /HPF Urine RBC (Auto) (0.0-6.0) /HPF U Epithel Cells (Auto) (0-13.0) /HPF Hyaline Casts /LPF Salicylates < 0.3 L (2.8-20.0) mg/dL Urine Opiates Screen Urine Methadone Screen Acetaminophen (10.0-30.0) ug/mL Ur Barbiturates Screen Valproic Acid < 2.8 L (50-100) ug/mL Ur Phencyclidine Scrn Ur Amphetamines Screen U Benzodiazepines Scrn Urine Cocaine Screen U Marijuana (THC) Screen Drugs of Abuse Note Plasma/Serum Alcohol (0-0.07) % 04/09/21 04/09/21 04/09/21 Range/Units 00:52 00:52 00:52 WBC (4.5-11.0) K/mm3 RBC (3.65-5.03) M/mm3 Hgb (10.1-14.3) gm/dl Hct (30.3-42.9) % MCV (79-97) fl MCH (28-32) pg MCHC (30-34) % RDW (13.2-15.2) % Plt Count (140-440) K/mm3 Add Manual Diff Total Counted Seg Neuts % (Manual) (40.0-70.0) % Lymphocytes % (Manual) (13.4-35.0) % Monocytes % (Manual) (0.0-7.3) % Eosinophils % (Manual) (0.0-4.3) % Nucleated RBC % Seg Neutrophils # Man (1.8-7.7) K/mm3 Band Neutrophils # K/mm3 Lymphocytes # (Manual) (1.2-5.4) K/mm3 Abs React Lymphs (Man) K/mm3 Monocytes # (Manual) (0.0-0.8) K/mm3 Eosinophils # (Manual) (0.0-0.4) K/mm3 Basophils # (Manual) (0.0-0.1) K/mm3 Metamyelocytes # K/mm3 Myelocytes # K/mm3 Promyelocytes # K/mm3 Blast Cells # K/mm3 WBC Morphology Hypersegmented Neuts Hyposegmented Neuts Hypogranular Neuts Smudge Cells Toxic Granulation Toxic Vacuolation Dohle Bodies Pelger-Huet Anomaly Theresa Rods Platelet Estimate Clumped Platelets Plt Clumps, EDTA Large Platelets Giant Platelets Platelet Satelliting Plt Morphology Comment RBC Morphology Dimorphic RBCs Polychromasia Hypochromasia Poikilocytosis Anisocytosis Microcytosis Macrocytosis Spherocytes Pappenheimer Bodies Sickle Cells Target Cells Tear Drop Cells Ovalocytes Helmet Cells Ricks-Savoy Bodies Wesley Rings Betsy Cells Bite Cells Crenated Cell Elliptocytes Acanthocytes (Spur) Rouleaux Hemoglobin C Crystals Schistocytes Malaria parasites Lencho Bodies Hem Pathologist Commnt Sodium (137-145) mmol/L Potassium (3.6-5.0) mmol/L Chloride (98-107) mmol/L Carbon Dioxide (22-30) mmol/L Anion Gap mmol/L BUN (7-17) mg/dL Creatinine (0.6-1.2) mg/dL Estimated GFR ml/min BUN/Creatinine Ratio % Glucose (65-100) mg/dL Calcium (8.4-10.2) mg/dL TSH (0.270-4.200) mlU/mL HCG, Qual Negative (Negative) Urine Color (Yellow) Urine Turbidity (Clear) Urine pH (5.0-7.0) Ur Specific [place] (1.003-1.030) Urine Protein (Negative) mg/dL Urine Glucose (UA) (Negative) mg/dL Urine Ketones (Negative) mg/dL Urine Blood (Negative) Urine Nitrite (Negative) Urine Bilirubin (Negative) Urine Urobilinogen (<2.0) mg/dL Ur Leukocyte Esterase (Negative) Urine WBC (Auto) (0.0-6.0) /HPF Urine RBC (Auto) (0.0-6.0) /HPF U Epithel Cells (Auto) (0-13.0) /HPF Hyaline Casts /LPF Salicylates (2.8-20.0) mg/dL Urine Opiates Screen Urine Methadone Screen Acetaminophen 5.0 L (10.0-30.0) ug/mL Ur Barbiturates Screen Valproic Acid (50-100) ug/mL Ur Phencyclidine Scrn Ur Amphetamines Screen U Benzodiazepines Scrn Urine Cocaine Screen U Marijuana (THC) Screen Drugs of Abuse Note Plasma/Serum Alcohol < 0.01 (0-0.07) % - Medical Decision Making 25-year-old female history of hypothyroidism and schizophrenia brought in 1013 by police after she expressed suicidal ideation to her boyfriend. Apparently she had been aggressive and was punching him. She took 50 mg of hydroxyzine and 25 mg of diphenhydramine and later sent a text message to her boyfriend saying she was going to kill herself. She claims that she tried to kill himself by strangling herself. She has very pressured tangential and circumferential speech consistent with darling and acute psychosis. Her physical examination is within normal limits. 1013 order was initiated and signed. Medical clearance labs ordered. Labs have resulted and reveal no significant leukocytosis or anemia. Creatinine is within normal range and there are no significant electrolyte abnormalities. Urinalysis reveals no significant abnormalities. She is medically cleared for psychiatric evaluation and placement. The patient was seen by the psychiatry/mental health team and they discontinued the 1013 and started the patient on her home medications for bipolar disorder. She was discharged home later in the day with prescriptions for her medications. Critical care attestation.: If time is entered above; I have spent that time in minutes in the direct care of this critically ill patient, excluding procedure time. ED Disposition Clinical Impression: Bipolar disorder, current episode manic severe with psychotic features Disposition: DC-01 TO HOME OR SELFCARE Is pt being admited?: No Condition: Stable Instructions: Suicidal Feelings: How to Help Yourself, Helping Someone Who Is Suicidal Additional Instructions: Professional and Agency Contacts To help [facility] (10/04) [place] Crisis Line: Suicide Prevention Line: Crisis Text Line: Text START to 425047 Emergency: 911 Outpatient [facility] Behavioral Health Resources: [place]: [facility] [address] [place], [place] [address] [facility] [address] [place] [address] Monday thru Monday - 8am - 5pm Call to schedule an assessment for mental health and substance abuse programs [facility] Address: [address] [place] [address] Monday thru Monday- 7am-2pm [facility] Address: [address] [place] [address] Monday thrmonday: 8:30AM-5PM Prescriptions: traZODone [Desyrel] 50 mg PO QHS 30 Days #[address] [DepaKOTE DR] 250 mg PO TID 30 Days #90 tablet Referrals: PRIMARY CARE, [Primary Care Provider] - 3-5 Days
[2021-04-09 01:34] LABS: Bilirubin,Urine NEG (Negative); Blood,Urine NEG (Negative); Color,Urine Yellow (Yellow); Hyaline Casts,Urine 1 /LPF; Protein,Urine <15 mg/dL mg/dL (Negative)
[2021-04-09 01:35] LABS: RBC,Urine < 1.0 /HPF (0.0-6.0)
[2021-04-09 01:40] LABS: Amphetamine Screen,Urine PRESUMPTIVE NEGATIVE; Benzodiazepines Screen,Urine PRESUMPTIVE NEGATIVE; Cannabinoid Screen,Urine PRESUMPTIVE POSITIVE; Cocaine Screen,Urine PRESUMPTIVE NEGATIVE; Methadone Screen,Urine PRESUMPTIVE NEGATIVE; Opiate Screen,Urine PRESUMPTIVE NEGATIVE
[2021-04-09 01:44] LABS: Hematocrit 30.9 % (30.3-42.9); Hemoglobin 9.9 gm/dl (10.1-14.3); Mean Corpuscular HGB Conc 32 % (30-34); Mean Corpuscular Volume 75 fl (79-97); Platelet Count 378 K/mm3 (140-440); Red Blood Count 4.13 M/mm3 (3.65-5.03)
[2021-04-09 01:46] LABS: Red Cell Distribution Width 21.8 % (13.2-15.2)
[2021-04-09 01:47] LABS: BUN/Creatinine Ratio 5; Blood Urea Nitrogen 4 mg/dL (7-17); Calcium 9.2 mg/dL (8.4-10.2); Hemolysis Index 2
[2021-04-09 02:21] LABS: Anisocytosis 1+; Hypochromasia 1+; Total Cells Counted 100
[2021-04-09 02:22] LABS: Platelet Estimate Consistent w Auto
[2021-04-09 08:16] VITALS: BP 125/81
--- NOTE | 2021-04-09 10:10 | Consultation ---
History of Present Illness - Reason for Consult Consult date: 04/09/21 Reason for consult: suicidal ideation - History of Present Psychiatric Illness Per Ed Note: 25-year-old female with history of asthma, hypothyroidism, and schizophrenia brought in 1013 by police due to suicidal ideation, aggressive behavior and psychosis. According to the police report, the patient's boyfriend reported that some hours ago she began to get extremely agitated and started punching him. She apparently took one of her anxiety medications, which is hydroxyzine 50 mg and took diphenhydramine 25 mg. She however texted her boyfriend that she was going to try to kill herself. Police were called and the patient was 1013. The patient tells me that she tried to kill her self by strangling herself. She has very pressured and tangential speech. She is unable to explain why she wants to end her life. She denies taking or ingesting anything other than the pills mentioned. She denies auditory/visual hallucinations although she states that the only hallucinations she has are in her head. She claims that her only complaint is thirstiness and denies any other physical symptoms or complaints. Tonia Hayes is a 25 year old female with a history of Bipolar, Schizophrenia, PTSD and insomnia who present to the ED for suicidal ideation. In my interview with the patient, she presents with pressured speech. She states " I confided on somebody and they told on me." She reports a history of multiple psychiatric inpatient admissions and a history self harm via burning self with cigarette " I just wanted to feel the pain." Patient is focused on discharge. she denies any current suicidal ideation and denies hallucinations. PAST PSYCHIATRIC HISTORY Diagnoses: schizophrenia, Bipolar, Insomnia, PTSD Suicide attempts or Self-harm behavior: Denies Prior psychiatric hospitalizations: Yes Substance Abuse history: Crack, meth, THC Previous psychiatric medications tried: unable to recall Outpatient treatment: not in a long time PAST MEDICAL HISTORY: None reported Family Psychiatric History: None reported or documented SOCIAL HISTORY Marital Status: Single Living Arrangements: Homeless Employment Status: Unemployed Access to guns/weapons: Denies Education: Some college History of Abuse: Denies Legal History: none reported REVIEW OF SYSTEMS Constitutional: Negative for weight loss ENT: Negative for stridor Respiratory: Negative for cough or hemoptysis All other systems reviewed and are negative MENTAL STATUS EXAMINATION General Appearance and Behavior: Age appropriate, good hygiene, wearing appropriate clothes, good eye contact Cooperation: Participating/engaged Psychomotor Behavior: Psychomotor normal Mood: "Okay" Affect and affective range: congruent with stated mood Thought Process: goal oriented Thought Content: Circumstantial Speech: Normal rate, volume and rhythm Suicidal Ideation: Denies Homicidal Ideation: Denies Delusions: None elicited Impulse Control: Impaired Insight and Judgment: impaired insight and judgment Memory: Limited Attention: Limited Orientation: Alert, oriented Assessment and Plan (1) Bipolar 1 disorder, manic, mild Current Visit: Yes Status: Acute F31.11 Treatment Plan Resume home medications Start Depakote Dr 250mg po TID Start Trazodone 50mg po QHS Risks, benefits and alternatives of medications discussed with the patient, questions answered and consent obtained from patient. PSYCHOTHERAPY: Supportive psychotherapy provided MEDICAL: Per primary team DELIRIUM PRECAUTIONS: Please re-orient patient frequently, keep lights on during the day, and minimize benzodiazepines and opiates as these medications could worsen patient's confusion. 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 Case discussed with Dr. Robles who agrees with current disposition FOLLOW-UP: Will sign off Thank you for the consult. Please contact with any questions and/or concerns. Medications and Allergies Allergies Allergy/AdvReac Type Severity Reaction Status Date / Time acetaminophen Allergy Angioedema Verified 12/08/19 02:22 ibuprofen [From Motrin] Allergy Angioedema Verified 12/08/19 02:22 peanut Allergy Angioedema Verified 12/11/19 04:51 Home Medications Medication Instructions Recorded Confirmed Last Taken Type Albuterol Mdi (or & Nicu Only) 2 puff IH QID PRN #1 inhalation 12/07/19 12/26/19 Unknown Rx [ProAir HFA Inhaler] Benzonatate [Tessalon Perles] 100 mg PO Q8HR #10 capsule 12/07/19 12/26/19 Unknown Rx Fluticasone [Flonase] 1 spray NS QDAY #1 bottle 12/07/19 12/26/19 Unknown Rx predniSONE [Deltasone] 20 mg PO QDAY #5 tab 12/07/19 12/26/[address] [Depakote Dr] 500 mg PO BID #60 tablet 12/11/19 12/26/19 Unknown Rx OLANzapine [ZyPREXA] 5 mg PO BID #60 tablet 12/11/19 12/26/19 Unknown Rx Albuterol Mdi (or & Nicu Only) 2 puff IH QID PRN #8.5 gram 10/28/20 Unknown Rx [ProAir HFA Inhaler] Naproxen [EC-Naprosyn] 500 mg PO BID PRN #30 tablet. 10/28/20 Unknown Rx predniSONE [Deltasone] 40 mg PO QDAY 5 Days #10 tab 10/28/[address] [DepaKOTE ] 250 mg PO TID 30 Days #90 tablet 04/09/21 Unknown Rx traZODone [Desyrel] 50 mg PO QHS 30 Days #30 tab 04/09/21 Unknown Rx Mental Status Exam - Vital signs Last Vital Signs Temp 97.8 F 04/09/21 08:04 Pulse 89 04/09/21 08:04 Resp 18 04/09/21 08:04 BP 125/81 04/09/21 08:04 Pulse Ox 100 04/09/21 08:04 Results Result Diagrams: 04/09/21 00:52 04/09/21 00:52 Abnormal lab results 04/09/21 04/09/21 04/09/21 Range/Units 00:52 00:52 00:52 Hgb 9.9 L (10.1-14.3) gm/dl MCV 75 L (79-97) fl MCH 24 L (28-32) pg RDW 21.8 H (13.2-15.2) % BUN 4 L (7-17) mg/dL Salicylates < 0.3 L (2.8-20.0) mg/dL Acetaminophen (10.0-30.0) ug/mL Valproic Acid < 2.8 L (50-100) ug/mL 04/09/21 Range/Units 00:52 Hgb (10.1-14.3) gm/dl MCV (79-97) fl MCH (28-32) pg RDW (13.2-15.2) % BUN (7-17) mg/dL Salicylates (2.8-20.0) mg/dL Acetaminophen 5.0 L (10.0-30.0) ug/mL Valproic Acid (50-100) ug/mL All other labs normal.
== END 2021-04-09 12:42 | disposition home or self-care (01) ==
LOC: ED 23:58
DX: F31.2 Bipolar disorder, current episode manic severe with psychotic features (principal); F41.9 Anxiety disorder, unspecified; E03.9 Hypothyroidism, unspecified; J45.909 Unspecified asthma, uncomplicated; F17.200 Nicotine dependence, unspecified, uncomplicated; Z79.899 Other long term (current) drug therapy; Z91.010 Allergy to peanuts; Z88.8 Allergy status to other drugs, medicaments and biological substances
CPT/HCPCS: 36415; 80048; 80164; 80307; 80320; 81001; 84443; 84703; 85007; 85025; G0480

== ENCOUNTER 2022-03-01 19:37 | Emergency (ER) | payer SELFPAY ==
[2022-03-01] MEDS ORDERED: ZIPRASIDONE MESYLATE 20 MG VIAL IM ONE (21:08)
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
[2022-03-02 00:11] LABS: Basophils % (Auto) 0.2 % (0.0-1.8); Eosinophils % (Auto) 0.1 % (0.0-4.3); Hematocrit 28.7 % (30.3-42.9); Hemoglobin 9.3 gm/dl (10.1-14.3); Lymphocytes # (Auto) 1.2 K/mm3 (1.2-5.4); Lymphocytes % (Auto) 12.3 % (13.4-35.0); Mean Corpuscular HGB Conc 32 % (30-34); Mean Corpuscular Volume 78 fl (79-97); Monocytes # (Auto) 0.5 K/mm3 (0.0-0.8); Platelet Count 312 K/mm3 (140-440); Red Blood Count 3.68 M/mm3 (3.65-5.03); Red Cell Distribution Width 19.4 % (13.2-15.2)
[2022-03-02 00:22] LABS: BUN/Creatinine Ratio 13; Blood Urea Nitrogen 10 mg/dL (7-17); Calcium 8.6 mg/dL (8.4-10.2); Hemolysis Index 3
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
[2022-03-02] MEDS ORDERED: ZIPRASIDONE MESYLATE 20 MG VIAL IM ONE (12:11)
[2022-03-02 12:41] LABS: Bilirubin,Urine NEG (Negative); Blood,Urine NEG (Negative); Color,Urine Amber (Yellow)
[2022-03-02 12:45] LABS: Bacteria,Urine 1+ /HPF (Negative); Mucus,Urine 3+ /HPF
[2022-03-02 13:48] LABS: Amphetamine Screen,Urine Negative; Benzodiazepines Screen,Urine Negative; Cocaine Screen,Urine Negative; Methadone Screen,Urine Negative; Opiate Screen,Urine Negative
[2022-03-02 14:00] LABS: Cannabinoid Screen,Urine Positive
[2022-03-02] MEDS: hydrOXYzine PAMOATE 25 MG CAP PO SCH ×2 (14:51→21:52)
[2022-03-02] MEDS: DIVALPROEX DR 250 MG TAB PO SCH ×2 (14:52→21:52)
[2022-03-02] MEDS ORDERED: ZIPRASIDONE MESYLATE 20 MG VIAL IM NR (15:00)
--- NOTE | 2022-03-02 16:31 | Event Note ---
Date: 03/02/22 Patient evaluated by psychiatry. Recommends inpatient treatment. Patient remains on 1013 at this time. She is stable.
[2022-03-03] MEDS: DIVALPROEX DR 250 MG TAB PO SCH ×2 (09:36→14:00)
[2022-03-03] MEDS: hydrOXYzine PAMOATE 25 MG CAP PO SCH (09:37)
--- NOTE | 2022-03-03 10:04 | Progress Note ---
Subjective - Reason for Consult Consult date: 03/03/22 Reason for consult: mental health evaluation - Chief Complaint Chief complaint: The patient was seen this morning. She continues to present with darling. The patient continues to be hyperverbal with flight of ideas, she became tearful during assessment. REVIEW OF SYSTEMS Constitutional: Negative for weight loss ENT: Negative for stridor Respiratory: Negative for cough or hemoptysis All other systems reviewed and are negative MENTAL STATUS EXAMINATION General Appearance and Behavior: Age appropriate, good hygiene, wearing appropriate clothes, good eye contact Cooperation: Participating/engaged Psychomotor Behavior: Psychomotor normal Mood: tearful Affect and affective range: congruent with stated mood Thought Process: Circumstantial/ Flight of ideas Thought Content: Reality oriented Speech: Hyperverbal Suicidal Ideation: Denies Homicidal Ideation: Denies Delusions: None elicited Impulse Control: Impaired Insight and Judgment: Limited insight and judgment Memory: Limited Attention: Limited Orientation: Alert, oriented Assessment and Plan (1) Bipolar disorder Treatment Plan 1013 Resume home medications Start Depakote Dr 250mg po TID Start Hydroxyzine 25mg po BID Risks, benefits and alternatives of medications discussed with the patient, questions answered and consent obtained from patient. PSYCHOTHERAPY: Supportive psychotherapy provided MEDICAL: Per primary team DELIRIUM PRECAUTIONS: Please re-orient patient frequently, keep lights on during the day, and minimize benzodiazepines and opiates as these medications could worsen patient's confusion. 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 FOLLOW-UP: Will sign follow. Thank you for the consult. Please contact with any questions and/or concerns. Mental Status Exam - Vital signs Last Vital Signs Temp 98.6 F 03/03/22 08:22 Pulse 94 H 03/03/22 08:22 Resp 18 03/03/22 08:22 BP 124/92 03/03/22 08:22 Pulse Ox 100 03/03/22 08:22
[2022-03-03] MEDS ORDERED: FERROUS SULFATE 325 MG TAB PO ONE (13:30)
--- NOTE | 2022-03-03 13:30 | Event Note ---
Date: 03/03/22 Ms. Hayes is seen and examined this morning have no new complaint except infected cuticle nail bed on her left big toe. She report pain this area. Her labs also reviewed and noted to have low H&H consistent with anemia. Will start Iron sulfate treatment and give antibiotic for the paronychia. Patient was also seen by psychiatrist this morning with no new recommendation. No other modifying or associated reported.
[2022-03-03] MEDS ORDERED: AMOXICILLIN/K CLAV 875/125MG TAB PO ONE (13:31)
[2022-03-04] MEDS: DIVALPROEX DR 250 MG TAB PO SCH ×3 (01:44→15:16)
[2022-03-04] MEDS: hydrOXYzine PAMOATE 25 MG CAP PO SCH ×2 (01:44→09:33)
[2022-03-04] MEDS ORDERED: ZIPRASIDONE 20 MG CAP PO ONE (03:47)
--- NOTE | 2022-03-04 09:21 | Progress Note ---
Subjective - Reason for Consult Consult date: 03/04/22 Reason for consult: psychosis - Chief Complaint Chief complaint: The patient was seen today. She appears to be responding to internal stimuli, although she initially denies any hallucinations. She later tells me that she "hears beeps in her left ear that are now moving to her right ear." The patient at times pauses before responding and looks around. The nurse says she has made multiple phone calls and there is no one on the phone. The patient denies SI/HI. She says she's been off her meds for about a year. She says she has a history of bipolar and schizophrenia. Will continue to recommend inpatient treatment for the management of psychosis and adjust medications. See plan below. REVIEW OF SYSTEMS Constitutional: Negative for weight loss ENT: Negative for stridor Respiratory: Negative for cough or hemoptysis All other systems reviewed and are negative MENTAL STATUS EXAMINATION General Appearance and Behavior: Age appropriate, good hygiene, wearing appropriate clothes, good eye contact Cooperation: Participating/engaged Psychomotor Behavior: Psychomotor normal Mood: okay Affect and affective range: congruent with stated mood Thought Process: Circumstantial, responding to internal stimuli Thought Content: Reality oriented Speech: normal tone and pace Suicidal Ideation: Denies Homicidal Ideation: Denies Hallucinations: Auditory Delusions: Yes Impulse Control: Impaired Insight and Judgment: Limited insight and judgment Memory: Limited Attention: Limited Orientation: Alert, oriented Assessment and Plan (1) Bipolar disorder Treatment Plan 1013 Start Risperidone 0.5mg po BID Depakote Dr 250mg po TID Hydroxyzine 25mg po BID Risks, benefits and alternatives of medications discussed with the patient, questions answered and consent obtained from patient. PSYCHOTHERAPY: Supportive psychotherapy provided MEDICAL: Per primary team DELIRIUM PRECAUTIONS: Please re-orient patient frequently, keep lights on during the day, and minimize benzodiazepines and opiates as these medications could worsen patient's confusion. 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 FOLLOW-UP: Will sign follow. Thank you for the consult. Please contact with any questions and/or concerns. Mental Status Exam - Vital signs Last Vital Signs Temp 97.8 F 03/04/22 08:57 Pulse 82 03/04/22 08:57 Resp 15 03/04/22 08:57 BP 123/89 03/04/22 08:57 Pulse Ox 99 03/04/22 08:57
[2022-03-04] MEDS ORDERED: risperiDONE 0.25 MG TAB PO SCH (10:00)
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
[2022-03-04 18:16] VITALS: BP 128/88
== END 2022-03-04 18:17 ==
LOC: EEVIPCON 19:37 → ED 19:37
DX: F20.9 Schizophrenia, unspecified (principal); F41.9 Anxiety disorder, unspecified; Z20.822 Contact with and (suspected) exposure to COVID-19; F17.200 Nicotine dependence, unspecified, uncomplicated; Z72.89 Other problems related to lifestyle; Z79.899 Other long term (current) drug therapy; Z88.6 Allergy status to analgesic agent; Z91.010 Allergy to peanuts
CPT/HCPCS: 36415; 80048; 80307; 81001; 84702; 85025; 96372; 99285; J3486; U0003; 80320; G0480

== ENCOUNTER 2022-04-06 14:20 | Emergency (ER) | payer SELFPAY ==
--- NOTE | 2022-04-06 14:26 | Emergency Department Report ---
ED Recheck HPI - General Stated Complaint: MH/RX REFILL Time Seen by Provider: 04/06/22 14:21 - History of Present Illness Initial Comments: 26-year-old black female presents to the emergency department requesting a prescription refill. She states that she was started on Vistaril and Depakote on her previous admission, she missed her follow-up appointment, and is here requesting refill until she can reschedule her appointment. She denies SI, HI, and any hallucinations. She states that she feels very well today but just does not want to miss too many doses of her medications because it makes her have symptoms. MD Complaint: medication refill request Returns Today for: request for prescription Symptoms Since Prior Visit: no new symptoms Associated Symptoms: none - Related Data Previous Rx's Medication Instructions Recorded Last Taken Type Albuterol Mdi (or & Nicu Only) 2 puff IH QID PRN #1 inhalation 12/07/19 Unknown Rx [ProAir HFA Inhaler] Benzonatate [Tessalon Perles] 100 mg PO Q8HR #10 capsule 12/07/19 Unknown Rx Fluticasone [Flonase] 1 spray NS QDAY #1 bottle 12/07/19 Unknown Rx predniSONE [Deltasone] 20 mg PO QDAY #5 tab 12/07/[address] Opal Sharma] 500 mg PO BID #60 tablet 12/11/19 Unknown Rx OLANzapine [ZyPREXA] 5 mg PO BID #60 tablet 12/11/19 Unknown Rx Albuterol Mdi (or & Nicu Only) 2 puff IH QID PRN #8.5 gram 10/28/20 Unknown Rx [ProAir HFA Inhaler] Naproxen [EC-Naprosyn] 500 mg PO BID PRN #30 tablet. 10/28/20 Unknown Rx predniSONE [Deltasone] 40 mg PO QDAY 5 Days #10 tab 10/28/[address] Opal SHARMA] 250 mg PO TID 30 Days #90 tablet 04/09/21 Unknown Rx traZODone [Desyrel] 50 mg PO QHS 30 Days #30 tab 04/09/[address] Opal SHARMA] 500 mg PO BID #60 tab 04/06/22 Unknown Rx hydrOXYzine PAMOATE [Vistaril] 25 mg PO BID #60 cap 04/06/22 Unknown Rx Allergies Allergy/AdvReac Type Severity Reaction Status Date / Time acetaminophen Allergy Angioedema Verified 03/01/22 19:54 ibuprofen [From Motrin] Allergy Angioedema Verified 03/01/22 19:54 peanut Allergy Angioedema Verified 03/01/22 19:54 ED Review of Systems ROS: Stated complaint: MH/RX REFILL Other details as noted in HPI Comment: All other systems reviewed and negative Constitutional: denies: chills, fever Respiratory: denies: shortness of breath Cardiovascular: denies: chest pain, palpitations Gastrointestinal: denies: abdominal pain, nausea, vomiting Musculoskeletal: denies: back pain Skin: denies: rash, lesions Neurological: denies: headache Psychiatric: denies: anxiety, depression, auditory hallucinations, visual hallucinations, homicidal thoughts, suicidal thoughts ED Past Medical Hx - Past Medical History Hx Psychiatric Treatment: Yes (anxiety, Schizophrenia) Additional medical history: hyperthyroid, right ovarian cyst, right breast lump, hernia. smoker's bronchitis. irreg heartbeat - Social History Smoking Status: Current Every Day Smoker Substance Use Type: Alcohol - Medications Home Medications: Home Medications Medication Instructions Recorded Confirmed Last Taken Type Albuterol Mdi (or & Nicu Only) 2 puff IH QID PRN #1 inhalation 12/07/19 12/26/19 Unknown Rx [ProAir HFA Inhaler] Benzonatate [Tessalon Perles] 100 mg PO Q8HR #10 capsule 12/07/19 12/26/19 Unknown Rx Fluticasone [Flonase] 1 spray NS QDAY #1 bottle 12/07/19 12/26/19 Unknown Rx predniSONE [Deltasone] 20 mg PO QDAY #5 tab 12/07/19 12/26/[address] [Depakote Dr] 500 mg PO BID #60 tablet 12/11/19 12/26/19 Unknown Rx OLANzapine [ZyPREXA] 5 mg PO BID #60 tablet 12/11/19 12/26/19 Unknown Rx Albuterol Mdi (or & Nicu Only) 2 puff IH QID PRN #8.5 gram 10/28/20 Unknown Rx [ProAir HFA Inhaler] Naproxen [EC-Naprosyn] 500 mg PO BID PRN #30 tablet. 10/28/20 Unknown Rx predniSONE [Deltasone] 40 mg PO QDAY 5 Days #10 tab 10/28/[address] [BrandonTE ] 250 mg PO TID 30 Days #90 tablet 04/09/21 Unknown Rx traZODone [Desyrel] 50 mg PO QHS 30 Days #30 tab 04/09/[address] [Jostin SHARMA] 500 mg PO BID #60 tab 04/06/22 Unknown Rx hydrOXYzine PAMOATE [Vistaril] 25 mg PO BID #60 cap 04/06/22 Unknown Rx ED Physical Exam - General General appearance: alert, in no apparent distress - Head Head exam: Present: atraumatic, normocephalic - Eye Eye exam: Present: normal appearance. Absent: scleral icterus, conjunctival injection, periorbital swelling, periorbital tenderness - Neck Neck exam: Present: normal inspection - Respiratory Respiratory exam: Absent: respiratory distress - Cardiovascular Cardiovascular Exam: Present: regular rate - GI/Abdominal GI/Abdominal exam: Absent: distended - Extremities Exam Extremities exam: Present: normal inspection - Back Exam Back exam: Present: normal inspection - Neurological Exam Neurological exam: Present: alert, oriented X3, normal gait - Psychiatric Psychiatric exam: Present: normal affect, normal mood. Absent: flat affect, homicidal ideation, suicidal ideation - Skin Skin exam: Present: warm, dry, intact, normal color ED Course Vital Signs 04/06/22 14:24 Temperature 98.8 F Pulse Rate 90 Respiratory 18 Rate Blood Pressure 110/82 [Right] O2 Sat by Pulse 99 Oximetry ED Recheck MDM - Differential Diagnosis Prescription Refill(s) - Medical Decision Making 26-year-old black female presents to the emergency department requesting a prescription refill. She states that she was started on Vistaril and Depakote on her previous admission, she missed her follow-up appointment, and is here requesting refill until she can reschedule her appointment. She denies SI, HI, and any hallucinations. She states that she feels very well today but just does not want to miss too many doses of her medications because it makes her have symptoms. Physical exam unremarkable. Patient given refill of medications as requested. She is advised to take medication as prescribed and follow-up with her mental health professional as planned. She is advised to return to the emergency department for any concerning symptoms. She verbalizes understanding of and agreement with plan of care. Critical care attestation.: If time is entered above; I have spent that time in minutes in the direct care of this critically ill patient, excluding procedure time. ED Disposition Clinical Impression: Medication refill Disposition: 01 HOME / SELF CARE / HOMELESS Is pt being admited?: No Does the pt Need Aspirin: No Condition: Stable Instructions: Hydroxyzine capsules or tablets, Valproic Acid, Divalproex Sodium delayed or extended-release tablets Additional Instructions: Take medications as prescribed. Follow-up with your mental health professional as planned. Return to the emergency department as needed. Prescriptions: Divalproex Dr [Jostin SHARMA] 500 mg PO BID #60 tab hydrOXYzine PAMOATE [Vistaril] 25 mg PO BID #60 cap Referrals: [facility] [Outside] - 3-5 Days Time of Disposition: 14:27
[2022-04-06 14:27] VITALS: BP 110/82
== END 2022-04-06 14:30 | disposition home or self-care (01) ==
LOC: ED 14:20
DX: Z00.00 Encounter for general adult medical examination without abnormal findings (principal); Z76.0 Encounter for issue of repeat prescription; Z91.010 Allergy to peanuts; F17.200 Nicotine dependence, unspecified, uncomplicated; F10.20 Alcohol dependence, uncomplicated; Z88.6 Allergy status to analgesic agent
CPT/HCPCS: 99282

== ENCOUNTER 2022-05-03 13:35 | Emergency (ER) | payer SELFPAY | END 2022-05-03 17:04 | disposition left against medical advice (07) | LOC: ED 13:35 | DX: R31.9 Hematuria, unspecified (principal); Z76.0 Encounter for issue of repeat prescription; Z53.21 Procedure and treatment not carried out due to patient leaving prior to being seen by health care provider ==